=== PATIENT | female | born 1990 | race Hispanic/Latino ===

== ENCOUNTER 2018-11-22 08:11 | Emergency (ER) | payer BC, MEDICAID ==
[2018-11-22 08:15] VITALS: BMI 36.6
[2018-11-22] MEDS ORDERED: Sodium Chloride 0.9% 1,000 ML IV STA (08:43)
[2018-11-22 09:17] LABS: BASO # 0.1 K/uL (0.0-0.2); BASO % 0.9 % (0.0-2.0); EOS # 0.1 K/uL (0.0-0.7); EOS % 2.1 % (0.0-4.0); LYMPH # 1.7 K/uL (1.0-4.3); MEAN CELL VOLUME 91.8 fl (81.0-99.0); MEAN CORPUSCULAR HEMOGLOBIN 31.1 pg (27.0-31.0); MEAN CORPUSCULAR HGB CONC 33.9 g/dL (33.0-37.0); MONO # 0.5 K/uL (0.0-0.8); MONO % 8.5 % (0.0-10.0); NEUT # 3.2 K/uL (1.8-7.0); NEUT % 58.5 % (50.0-75.0); RBC 4.49 Mil/uL (3.80-5.20); RED CELL DISTRIBUTION WIDTH 12.5 % (11.5-14.5); WHITE BLOOD COUNT 5.5 K/uL (4.8-10.8)
--- NOTE | 2018-11-22 09:22 | ED PDOC ---
HPI: General Adult Time Seen by Provider: 11/22/18 08:28 Chief Complaint (Nursing): Dizziness/Lightheaded Chief Complaint (Provider): Dizziness/Lightheaded History Per: Patient History/Exam Limitations: no limitations Onset/Duration Of Symptoms: Days (x3 ) Current Symptoms Are (Timing): Still Present Additional Complaint(s): 28 year old female with no past medical history who is presenting to the ED for evaluation of dizziness, lightheadedness, and nausea onset 3 days ago. Patient states that she has intermittent episodes that sometimes feel like a room spinning sensation. She admits that she has had a similar episode in the past in college and states that she had a headache last week but that has resolved since. No numbness or weakness now. Patient denies any vision changes, vomiting, chest pain, shortness of breath, or abdominal pain. She also denies any leg pain/swelling, recent travel or sick contacts. She reports that she took a decongestant yesterday as she could not get Antivert and admits that she has been on control for 10 years without any complications or problems. PMD: Olive Masters Past Medical History Reviewed: Historical Data, Nursing Documentation, Vital Signs Vital Signs: Last Vital Signs Temp 98.7 F 11/22/18 08:15 Pulse 75 11/22/18 08:15 Resp 17 11/22/18 08:15 BP 117/75 11/22/18 08:15 Pulse Ox 98 11/22/18 08:15 - Medical History PMH: No Chronic Diseases - Surgical History Other surgeries: myringotomy x 2 - Family History Family History: States: Unknown Family Hx - Social History Current smoker - smoking cessation education provided: Yes Alcohol: Social Drugs: Denies - Home Medications Home Medications: Ambulatory Orders Medication Instructions Recorded Naproxen 500 mg PO BID PRN #20 tab 12/18/14 Oxycodone HCl/Acetaminophen 1 tab PO Q6H PRN #10 tab 12/18/14 [Percocet 325 mg-5 mg] Meclizine [Meclizine*] 25 mg PO Q12 PRN #10 tab 11/22/18 - Allergies Allergies/Adverse Reactions: Allergies Allergy/AdvReac Type Severity Reaction Status Date / Time No Known Allergies Allergy Verified 12/17/14 23:47 Review of Systems ROS Statement: Except As Marked, All Systems Reviewed And Found Negative Eyes: Negative for: Vision Change Cardiovascular: Negative for: Chest Pain Respiratory: Negative for: Shortness of Breath Gastrointestinal: Positive for: Nausea. Negative for: Vomiting, Abdominal Pain Neurological: Positive for: Headache (resolved ), Dizziness, Other (lightheadedness ). Negative for: Weakness, Numbness Physical Exam - Reviewed Nursing Documentation Reviewed: Yes Vital Signs Reviewed: Yes - Physical Exam Appears: Positive for: Well, Non-toxic, No Acute Distress Head Exam: Positive for: ATRAUMATIC, NORMAL INSPECTION, NORMOCEPHALIC Skin: Positive for: Normal Color, Warm, DRY Eye Exam: Positive for: Normal appearance, EOMI, PERRL ENT: Positive for: Normal ENT Inspection Neck: Positive for: Normal, Painless ROM, Supple Cardiovascular/Chest: Positive for: Regular Rate, Rhythm. Negative for: Murmur Respiratory: Positive for: Normal Breath Sounds. Negative for: Respiratory Distress Gastrointestinal/Abdominal: Positive for: Normal Exam, Soft. Negative for: Ten derness Back: Positive for: Normal Inspection. Negative for: L CVA Tenderness, R CVA Tenderness Extremity: Positive for: Normal ROM. Negative for: Tenderness, Deformity, Swelling Neurological/Psych: Positive for: Awake, Alert, Normal Tone, Oriented (x3), pill maker II-XII (normal ). Negative for: Motor/Sensory Deficits, Facial Droop - Laboratory Results Result Diagrams: 11/22/18 09:00 11/22/18 09:00 Lab Results: no acute - ECG ECG: Positive for: Interpreted By Me, Viewed By Me ECG Rhythm: Positive for: Normal QRS, Normal ST Segment, Sinus Rhythm O2 Sat by Pulse Oximetry: 98 (RA) Pulse Ox Interpretation: Normal - Progress ED Course And Treament: 1035: Stable. AAOx3. Pain free. Tolerated PO. Feels better. Will fu with pcp. Medical Decision Making Medical Decision Making: Time: 9:00 Plan: --EKG --BMP --ED Urine --CBC --Antivert 25 mg PO --IV Fluids --Glucose, Blood, POC Scribe Attestation: Documented by Bernie Zambrano, acting as a scribe for Edilberto Ross MD. Provider Scribe Attestation: All medical record entries made by the Scribe were at my direction and personally dictated by me. I have reviewed the chart and agree that the record accurately reflects my personal performance of the history, physical exam, medical decision making, and the department course for this patient. I have also personally directed, reviewed, and agree with the discharge instructions and disposition. Disposition - Clinical Impression Clinical Impression: Dizziness - Patient ED Disposition Is Patient to be Admitted: No Counseled Patient/Family Regarding: Studies Performed, Diagnosis, Need For Followup, Rx Given - Disposition Referrals: [facility] [Outside] - 11/23/18 Disposition: Routine/Home Disposition Time: 11:00 Condition: STABLE Additional Instructions: Return if not better in 3 days. Prescriptions: Meclizine [Meclizine*] 25 mg PO Q12 PRN #10 tab PRN Reason: Dizziness Instructions: Vertigo (a Type of Dizziness) Forms: [facility] ED School/Work Excuse
[2018-11-22 09:32] LABS: BLOOD UREA NITROGEN 13 mg/dl (7-17); CALCIUM 9.3 mg/dL (8.4-10.2); GFR NON-AFRICAN AMERICAN > 60
[2018-11-22 11:17] VITALS: BP 122/70; PULSE 77; RESP 18; TEMP 98; O2SAT 99
--- NOTE | 2018-11-23 09:15 | CARD ---
APPROVED REPORT Date of service: 11/22/2018 EKG Measurement Heart [id number] <Conclusion> Normal sinus rhythm Normal ECG
== END 2018-11-22 11:15 | disposition home or self-care (01) ==
LOC: H.ER 08:11
DX: R42 Dizziness and giddiness (principal)
CPT/HCPCS: 80048; 81025; 82948; 85025; 93005; 99283; J7030